=== PATIENT | male | born 1975 | race Caucasian/White ===

== ENCOUNTER 2016-03-06 00:55 | Inpatient (IN) | payer MEDICAID, OTHER ==
[~2016-03-06] VITALS: Ht 172.7 cm; Wt 64.7 kg
[~2016-03-06 00:55] MED LIST: CARB200T6 PO; QUET300T2 PO; SERT100T12 PO
[2016-03-06 01:18] LABS: BASOPHILS % (AUTO) 0.3 % (0.0-2.0); HEMATOCRIT 40.4 % (41-53); HEMOGLOBIN 13.6 g/dL (13.5-17.5); LYMPHOCYTES # (AUTO) 2.8 K/uL (1.0-4.8); LYMPHOCYTES % (AUTO) 38.1 % (22.0-44.0); MEAN CORPUSCULAR HEMOGLOBIN 31.1 pg (26.0-34.0); MEAN CORPUSCULAR HGB CONC 33.7 G/dL (31.0-37.0); MEAN CORPUSCULAR VOLUME 92 fL (80-100); MONOCYTES # (AUTO) 0.6 K/uL (0.1-1.0); MONOCYTES % (AUTO) 8.6 % (2.0-9.0); NEUTROPHILS # (AUTO) 3.7 K/uL (1.8-7.7); PLATELET COUNT (AUTO) 358 K/uL (150-450); RED BLOOD CELL COUNT(AUTO) 4.38 MIL/uL (4.50-5.90); RED CELL DISTRIBUTION WIDTH 12.7 % (11.5-14.5); WHITE BLOOD COUNT (AUTO) 7.3 K/uL (4.5-11.0)
[2016-03-06 01:38] LABS: ANION GAP 10 mmol/L (8-16); CALCIUM, TOTAL 8.7 mg/dL (8.8-10.5); CARBON DIOXIDE 30 mmol/L (22-29); CHLORIDE 99 mmol/L (98-107); CREATININE 0.76 mg/dL (0.60-1.30); GLOMERULAR FILTR. RATE CALC > 60 mL/min (>60); POTASSIUM 3.3 mmol/L (3.5-5.1); SODIUM SERUM 139 mmol/L (136-145); UREA NITROGEN, BLOOD 17 mg/dL (7-18)
[2016-03-06 01:44] LABS: ALANINE AMINOTRANSFERASE 100 U/L (12-78); ALBUMIN 4.1 g/dL (3.4-5.0); ASPARTATE AMINOTRANSFERASE 53 U/L (15-37); BILIRUBIN,TOTAL 0.4 mg/dL (0.1-1.0); TOTAL PROTEIN, SERUM 8.2 g/dL (6.4-8.2)
[2016-03-06] MEDS ORDERED: ZOLPIDEM TARTRATE 10 MG TABLET PO PRN (02:15)
[2016-03-06] MEDS ORDERED: LORazepam 2 MG TABLET PO PRN (02:15)
[2016-03-06] MEDS ORDERED: HALOPERIDOL 5 MG TABLET PO PRN (02:15)
[2016-03-06 02:23] LABS: ADD UA MICROSCOPIC YES; APPEARANCE,URINE CLEAR (CLEAR); GLUCOSE, URINE (UA) NEGATIVE (NEGATIVE); KETONES,URINE TRACE mg/dL (NEGATIVE); LEUKOCYTE ESTERASE ,URINE TRACE (NEGATIVE); OCCULT BLOOD,URINE NEGATIVE (NEGATIVE); PROTEIN,URINE NEGATIVE (NEGATIVE)
[2016-03-06] MEDS ORDERED: POTASSIUM CHLORIDE 20 MEQ ER TABLET PO ONE (02:30)
[2016-03-06 02:35] LABS: RBC,URINE 0-2 /HPF (0-2); WBC,URINE 0-2 /HPF (0-5)
[2016-03-06 04:43] VITALS: BP 144/93
[2016-03-06] MEDS ORDERED: INFLUENZA VIRUS VACCINE QVS 2016-17 (3YR+)/PF 60 MCG/0.5 ML SYRINGE IM ONE (05:00)
[2016-03-06 10:07] VITALS: BP 130/69
[2016-03-06] MEDS: CarBAMazepine 200 MG TABLET PO SCH ×2 (10:25→17:41)
[2016-03-06] MEDS: SERTRALINE HCL 50 MG TABLET PO SCH (10:25)
[2016-03-06] MEDS: QUEtiapine FUMARATE 300 MG TABLET PO SCH ×2 (10:26→21:23)
[2016-03-06 16:00] VITALS: BP 133/87
[2016-03-06] MEDS ORDERED: ONDANSETRON HCL 4 MG TABLET PO PRN (17:15)
[2016-03-06] MEDS ORDERED: IBUPROFEN 600 MG TABLET PO PRN (17:15)
[2016-03-06] MEDS ORDERED: CloNIDine HCL 0.1 MG TABLET PO PRN (17:15)
[2016-03-06] MEDS ORDERED: MAGNESIUM HYDROXIDE SUSPENSION 30 ML UDCUP PO PRN (17:15)
[2016-03-06] MEDS ORDERED: PETROLATUM,WHITE 71 GM JELLY TP PRN (17:15)
[2016-03-06] MEDS ORDERED: BENZOCAINE/MENTHOL LOZENGE [8 LOZENGES/PACKET] MM PRN (17:15)
[2016-03-06] MEDS ORDERED: LOPERAMIDE HCL 2 MG CAPSULE PO PRN (17:15)
[2016-03-06] MEDS ORDERED: ACETAMINOPHEN 325 MG TABLET PO PRN (17:15)
[2016-03-06] MEDS ORDERED: ALBUTEROL SULFATE HFA 90 MCG/PUFF 8 GM INHALER IH PRN (17:15)
[2016-03-06] MEDS ORDERED: MAG HYDROX/AL HYDROX/SIMETH ES 30 ML SUSPENSION UDCUP PO PRN (17:15)
[2016-03-06] MEDS ORDERED: BACITRACIN 28.4 GM OINTMENT TP PRN (17:15)
[2016-03-07] MEDS: QUEtiapine FUMARATE 300 MG TABLET PO SCH ×2 (08:01→21:23)
[2016-03-07] MEDS: CarBAMazepine 200 MG TABLET PO SCH ×2 (08:02→18:17)
[2016-03-07] MEDS: SERTRALINE HCL 50 MG TABLET PO SCH (08:02)
[2016-03-07 09:28] VITALS: BP 130/81
[2016-03-07 16:30] VITALS: BP 114/71
[2016-03-08] MEDS: SERTRALINE HCL 50 MG TABLET PO SCH (08:28)
[2016-03-08] MEDS: QUEtiapine FUMARATE 300 MG TABLET PO SCH ×2 (08:28→21:27)
[2016-03-08] MEDS: CarBAMazepine 200 MG TABLET PO SCH ×2 (08:28→16:52)
[2016-03-08 08:51] LABS: CHOL/HDL RATIO 1.9 (4.2-7.3); POTASSIUM 4.4 mmol/L (3.5-5.1); THYROID STIMULATING HORMONE 0.57 uIU/mL (0.36-3.74)
[2016-03-08 09:42] VITALS: BP 122/79
[2016-03-08 20:22] VITALS: BP 128/79
[2016-03-09 06:06] LABS: HEPATITIS Bs ANTIGEN SCREEN P Negative (Negative); HEPATITIS C AB SCREEN >11.0 s/co ratio (0.0-0.9)
[2016-03-09] MEDS: CarBAMazepine 200 MG TABLET PO SCH ×2 (09:39→16:40)
[2016-03-09] MEDS: QUEtiapine FUMARATE 300 MG TABLET PO SCH ×2 (09:39→20:43)
[2016-03-09] MEDS: SERTRALINE HCL 50 MG TABLET PO SCH (09:41)
[2016-03-09 09:52] VITALS: BP 106/73
[2016-03-09 16:14] VITALS: BP 117/75
[2016-03-10 08:00] VITALS: BP 118/76
[2016-03-10] MEDS: QUEtiapine FUMARATE 300 MG TABLET PO SCH ×2 (09:27→20:35)
[2016-03-10] MEDS: SERTRALINE HCL 50 MG TABLET PO SCH (09:27)
[2016-03-10] MEDS: CarBAMazepine 200 MG TABLET PO SCH ×2 (09:27→16:50)
[2016-03-10 16:34] VITALS: BP 107/66
[2016-03-11 08:01] VITALS: BP 120/74
[2016-03-11] MEDS: QUEtiapine FUMARATE 300 MG TABLET PO SCH ×2 (09:35→21:38)
[2016-03-11] MEDS: CarBAMazepine 200 MG TABLET PO SCH ×2 (09:35→16:00)
[2016-03-11] MEDS: SERTRALINE HCL 50 MG TABLET PO SCH (09:35)
[2016-03-11 17:54] VITALS: BP 118/68
[2016-03-12 09:15] VITALS: BP 139/90
[2016-03-12] MEDS: QUEtiapine FUMARATE 300 MG TABLET PO SCH (09:51)
[2016-03-12] MEDS: SERTRALINE HCL 50 MG TABLET PO SCH (09:51)
[2016-03-12] MEDS: CarBAMazepine 200 MG TABLET PO SCH (09:52)
== END 2016-03-12 12:20 | disposition home or self-care (01) | DRG 750 ==
LOC: EMS 00:56 → 3EI 03:39
PROVIDERS: ADMIT Psychiatry & Neurology Child & Adolescent Psychiatry
DX: F25.1 Schizoaffective disorder, depressive type (principal); R56.9 Unspecified convulsions; N39.0 Urinary tract infection, site not specified; R45.851 Suicidal ideations; E83.51 Hypocalcemia; E87.6 Hypokalemia; F12.90 Cannabis use, unspecified, uncomplicated; F41.9 Anxiety disorder, unspecified; R74.0 Nonspecific elevation of levels of transaminase and lactic acid dehydrogenase [LDH]; F17.210 Nicotine dependence, cigarettes, uncomplicated; F15.10 Other stimulant abuse, uncomplicated; G40.909 Epilepsy, unspecified, not intractable, without status epilepticus; K59.00 Constipation, unspecified; Z72.0 Tobacco use; Z91.14 Patient's other noncompliance with medication regimen; Z79.899 Other long term (current) drug therapy; Z71.6 Tobacco abuse counseling; Z72.89 Other problems related to lifestyle
CPT/HCPCS: 80074; 82306; 84132; 84443; 87081; 99285; G0480; J3535

== ENCOUNTER 2016-03-13 17:50 | Inpatient (IN) | payer MEDICAID, OTHER ==
[~2016-03-13] VITALS: Ht 172.7 cm; Wt 62.1 kg
[2016-03-13 18:22] LABS: BASOPHILS % (AUTO) 0.1 % (0.0-2.0); EOSINOPHILS % (AUTO) 0.9 % (1.0-6.0); HEMOGLOBIN 13.9 g/dL (13.5-17.5); LYMPHOCYTES # (AUTO) 2.9 K/uL (1.0-4.8); LYMPHOCYTES % (AUTO) 30.9 % (22.0-44.0); MEAN CORPUSCULAR HEMOGLOBIN 31.6 pg (26.0-34.0); MEAN CORPUSCULAR VOLUME 93 fL (80-100); MONOCYTES # (AUTO) 0.7 K/uL (0.1-1.0); MONOCYTES % (AUTO) 7.4 % (2.0-9.0); NEUTROPHILS # (AUTO) 5.6 K/uL (1.8-7.7); NEUTROPHILS % (AUTO) 60.7 % (40.0-70.0); PLATELET COUNT (AUTO) 346 K/uL (150-450); RED BLOOD CELL COUNT(AUTO) 4.41 MIL/uL (4.50-5.90); RED CELL DISTRIBUTION WIDTH 13.8 % (11.5-14.5); WHITE BLOOD COUNT (AUTO) 9.3 K/uL (4.5-11.0)
[2016-03-13 18:29] LABS: ANION GAP 8 mmol/L (8-16); CALCIUM, TOTAL 8.9 mg/dL (8.8-10.5); CARBON DIOXIDE 31 mmol/L (22-29); CHLORIDE 98 mmol/L (98-107); CREATININE 0.84 mg/dL (0.60-1.30); GLOMERULAR FILTR. RATE CALC > 60 mL/min (>60); SODIUM SERUM 137 mmol/L (136-145); UREA NITROGEN, BLOOD 11 mg/dL (7-18)
[2016-03-13 18:35] LABS: ALANINE AMINOTRANSFERASE 107 U/L (12-78); ALBUMIN 4.4 g/dL (3.4-5.0); ASPARTATE AMINOTRANSFERASE 42 U/L (15-37); BILIRUBIN,TOTAL 0.1 mg/dL (0.1-1.0); TOTAL PROTEIN, SERUM 8.5 g/dL (6.4-8.2)
[2016-03-13] MEDS ORDERED: ACETAMINOPHEN 500 MG TABLET PO ONE (19:00)
[2016-03-13] MEDS ORDERED: BACITRACIN 0.9 GM PACKET OINTMENT TP ONE (19:15)
[2016-03-13] MEDS ORDERED: IBUPROFEN 600 MG TABLET PO ONE (20:30)
[2016-03-13] MEDS ORDERED: ZOLPIDEM TARTRATE 10 MG TABLET PO PRN (22:00)
[2016-03-13] MEDS ORDERED: LORazepam 2 MG TABLET PO PRN (22:00)
[2016-03-13] MEDS ORDERED: HALOPERIDOL 5 MG TABLET PO PRN (22:00)
[2016-03-13 22:04] LABS: APPEARANCE,URINE CLEAR (CLEAR); GLUCOSE, URINE (UA) NEGATIVE (NEGATIVE); KETONES,URINE NEGATIVE (NEGATIVE); LEUKOCYTE ESTERASE ,URINE NEGATIVE (NEGATIVE); OCCULT BLOOD,URINE SMALL (NEGATIVE); PROTEIN,URINE NEGATIVE (NEGATIVE)
[2016-03-13 22:05] LABS: ADD UA MICROSCOPIC YES
[2016-03-13 22:11] LABS: SQUAMOUS EPITHELIAL CELL,UR Rare /LPF (None Seen)
[2016-03-13 22:13] LABS: WBC,URINE 0-2 /HPF (0-5)
[2016-03-13 22:14] LABS: RBC,URINE 0-2 /HPF (0-2); URINALYSIS COMMENT Rare Sperm seen.
[2016-03-14 16:54] VITALS: BP 110/80
[2016-03-15 05:30] VITALS: BP 94/58
[2016-03-15 08:00] VITALS: BP 99/63
[2016-03-15 09:15] VITALS: BP 119/81
[2016-03-15] MEDS ORDERED: ACETAMINOPHEN 325 MG TABLET PO PRN (10:15)
[2016-03-15] MEDS ORDERED: CloNIDine HCL 0.1 MG TABLET PO PRN (10:15)
[2016-03-15] MEDS ORDERED: MAGNESIUM HYDROXIDE SUSPENSION 30 ML UDCUP PO PRN (10:15)
[2016-03-15] MEDS ORDERED: BACITRACIN 28.4 GM OINTMENT TP PRN (10:15)
[2016-03-15] MEDS ORDERED: ONDANSETRON HCL 4 MG TABLET PO PRN (10:15)
[2016-03-15] MEDS ORDERED: ALBUTEROL SULFATE HFA 90 MCG/PUFF 8 GM INHALER IH PRN (10:15)
[2016-03-15] MEDS ORDERED: MAG HYDROX/AL HYDROX/SIMETH ES 30 ML SUSPENSION UDCUP PO PRN (10:15)
[2016-03-15] MEDS ORDERED: IBUPROFEN 600 MG TABLET PO PRN (10:15)
[2016-03-15] MEDS ORDERED: LOPERAMIDE HCL 2 MG CAPSULE PO PRN (10:15)
[2016-03-15] MEDS ORDERED: PETROLATUM,WHITE 71 GM JELLY TP PRN (10:15)
[2016-03-15] MEDS ORDERED: BENZOCAINE/MENTHOL LOZENGE MM PRN (10:15)
[2016-03-15] MEDS: CarBAMazepine 200 MG TABLET PO SCH ×2 (10:53→16:31)
[2016-03-15] MEDS: SERTRALINE HCL 50 MG TABLET PO SCH (10:53)
[2016-03-15 16:00] VITALS: BP 119/63
[2016-03-15] MEDS: QUEtiapine FUMARATE 300 MG TABLET PO SCH (20:15)
[2016-03-16 03:21] VITALS: BP 103/60
[2016-03-16] MEDS: CarBAMazepine 200 MG TABLET PO SCH ×2 (08:26→16:30)
[2016-03-16] MEDS: QUEtiapine FUMARATE 300 MG TABLET PO SCH ×2 (08:26→20:18)
[2016-03-16] MEDS: SERTRALINE HCL 50 MG TABLET PO SCH (08:26)
[2016-03-16 08:39] VITALS: BP 115/63
[2016-03-16] MEDS ORDERED: SERT50TA12 PO (11:14)
[2016-03-16] MEDS ORDERED: INFLUENZA VIRUS VACCINE QVS 2016-17 (3YR+)/PF 60 MCG/0.5 ML SYRINGE IM ONE (11:15)
[2016-03-16 16:09] VITALS: BP 103/60
[2016-03-17 02:08] VITALS: BP 105/63
[2016-03-17] MEDS: QUEtiapine FUMARATE 300 MG TABLET PO SCH (08:22)
[2016-03-17] MEDS: CarBAMazepine 200 MG TABLET PO SCH (08:22)
[2016-03-17] MEDS: SERTRALINE HCL 50 MG TABLET PO SCH (08:23)
[2016-03-17 08:31] VITALS: BP 118/66
== END 2016-03-17 14:58 | disposition home or self-care (01) | DRG 750 ==
LOC: EMS 17:51 → AHU 03-14 10:53 → B2S 03-15 10:12
PROC: 3E0234Z Introduction of Serum, Toxoid and Vaccine into Muscle, Percutaneous Approach (ICD-10-PCS; principal; 2016-03-16)
DX: F25.1 Schizoaffective disorder, depressive type (principal); R45.851 Suicidal ideations; N39.0 Urinary tract infection, site not specified; E55.9 Vitamin D deficiency, unspecified; I10 Essential (primary) hypertension; B18.2 Chronic viral hepatitis C; F10.10 Alcohol abuse, uncomplicated; F12.10 Cannabis abuse, uncomplicated; F15.10 Other stimulant abuse, uncomplicated; F31.9 Bipolar disorder, unspecified; G40.909 Epilepsy, unspecified, not intractable, without status epilepticus; K59.00 Constipation, unspecified; F32.9 Major depressive disorder, single episode, unspecified; S61.512A Laceration without foreign body of left wrist, initial encounter; S61.511A Laceration without foreign body of right wrist, initial encounter; E87.6 Hypokalemia; E83.51 Hypocalcemia; R74.0 Nonspecific elevation of levels of transaminase and lactic acid dehydrogenase [LDH]; F17.210 Nicotine dependence, cigarettes, uncomplicated; X78.9XXA Intentional self-harm by unspecified sharp object, initial encounter; Z91.14 Patient's other noncompliance with medication regimen; Y93.89 Activity, other specified; Y92.89 Other specified places as the place of occurrence of the external cause; Y99.8 Other external cause status; Z79.899 Other long term (current) drug therapy; Z72.89 Other problems related to lifestyle; Z23 Encounter for immunization
CPT/HCPCS: 87081; 90471; 99285; G0480